=== PATIENT | female | born 1950 | race Two or more races ===

== ENCOUNTER 2018-05-18 18:36 | Emergency (ER) | payer MEDICARE ==
[~2018-05-18] VITALS: Ht 154.9 cm; Wt 52.6 kg
[2018-05-18 20:00] VITALS: BP 173/83
--- NOTE | 2018-05-18 20:17 | PHYS DOC ---
Adult General Chief Complaint Chief Complaint: WRIST PAIN HPI HPI Patient is a 68-year-old female who presents after falling at about 5:30 PM this evening. Patient fell onto left outstretched hand and complains of injury to her left wrist. Patient also complains of eye lateral knee pain and injury. Patient was able to bear weight but with pain. She denies any head injury or loss of consciousness. Patient rates pain a 7 out of 10. She states the pain is worsened with weightbearing and with palpation of her left wrist. Review of Systems Review of Systems Constitutional: Denies fever or chills [] Respiratory: Denies cough or shortness of breath [] Cardiovascular: No additional information not addressed in HPI [] Musculoskeletal: Complains of left wrist and bilateral knee joint pain [] Integument: Denies rash or skin lesions [] All other systems were reviewed and found to be within normal limits, except as documented in this note. Current Medications Current Medications Current Medications Medications (Trade) Dose Ordered Sig/Bola Start Time Stop Time Status Last Admin Dose Admin Acetaminophen/ Hydrocodone Bitart (Lortab 5/325) 1 tab 1X ONCE 05/18/18 20:45 05/18/18 20:46 DC 05/18/18 20:32 1 TAB Allergies Allergies Allergies Coded Allergies Type Severity Reaction Last Updated Verified No Known Drug Allergies 05/18/18 No Physical Exam Physical Exam Constitutional: Well developed, well nourished, no acute distress, non-toxic appearance. [] HENT: Normocephalic, atraumatic, bilateral external ears normal, oropharynx moist, no oral exudates, nose normal. [] Eyes: PERRLA, EOMI, conjunctiva normal, no discharge. [] Neck: Normal range of motion, no tenderness, supple, no stridor. [] Cardiovascular: Regular rate and rhythm[] Lungs & Thorax: Bilateral breath sounds clear to auscultation [] Abdomen: Bowel sounds normal, soft. [] Skin: Warm, dry. [] Extremities: Wrist demonstrates mild soft tissue swelling with moderate tenderness to palpation especially over the radial aspect of wrist. Range of motion is limited due to pain. Bilateral knees demonstrate tenderness to palpation over the patellae and slight abrasions are noted. [] Neurologic: Alert and oriented X 3, normal motor function, normal sensory function, no focal deficits noted. [] Current Patient Data Vital Signs Vital Signs Date Time Temp Pulse Resp B/P (MAP) Pulse Ox O2 Delivery O2 Flow Rate FiO2 05/18/18 20:00 98.6 77 16 173/83 (113) 97 Room Air 98.6 EKG EKG [] Radiology/Procedures Radiology/Procedures [] Impressions: X-ray of the left wrist demonstrates an impacted distal radius fracture with volar angulation. Course & Med Decision Making Course & Med Decision Making Pertinent Labs and Imaging studies reviewed. (See chart for details) Patient's case was discussed with or CVA who agrees that OCL splint is appropriate at this time. A sugar tong splint has been placed by the ER nurse. Good fit and alignment has been noted post splinting with neurovascular intact distal. Dragon Disclaimer Dragon Disclaimer This electronic medical record was generated, in whole or in part, using a voice recognition dictation system. Departure Departure Impression: Primary Impression: Closed fracture of distal end of left radius Disposition: 01 HOME, SELF-CARE Condition: STABLE Referrals: UNKNOWN PCP NAME (PCP) AGUSTINA CALABRESE MD Patient Instructions: Wrist Fracture Scripts Naproxen (NAPROXEN) 500 Mg Tablet 1 TAB PO BID PRN for PAIN, #20 TAB Prov: CASA MACKENZIE Jr. DO 05/18/18 Hydrocodone/Apap 5-325 (NORCO 5-325 TABLET) 1 Each Tablet 1 EACH PO PRN Q6HRS PRN for PAIN, #15 as needed for pain Prov: CASA MACKENZIE Jr. DO 05/18/18 Problem Qualifiers Primary Impression: Closed fracture of distal end of left radius Encounter type: initial encounter Fracture morphology: unspecified fracture morphology Qualified Codes: S52.502A - Unspecified fracture of the lower end of left radius, initial encounter for closed fracture CASA MACKENZIE Jr. DO May 18, 2018 20:17
[2018-05-18] MEDS: HYDROcodone/APAP 5/325MG 1 TAB TABLET PO ONE (20:32)
[2018-05-18] MEDS ORDERED: NAPR-514 PO (21:30)
[2018-05-18] MEDS ORDERED: HYDR-3164 PO (21:30)
--- NOTE | 2018-05-18 21:52 | RAD ---
Indication: Left wrist pain after fall TECHNIQUE: 3 views of the left wrist COMPARISON: None Findings/ impression: Mildly displaced complete fracture is seen through the distal radial metaphysis with mild ventral angulation. Wrist edema noted. The distal radioulnar joint is intact. Electronically signed by: Efra Gregory DO (05/18/2018 9:49 PM) [facility]
--- NOTE | 2018-05-18 21:54 | RAD ---
Indication: Fall with bilateral knee pain TECHNIQUE: Multiple views of the bilateral knees COMPARISON: None FINDINGS: Left knee: No acute fracture or dislocation. No suprapatellar effusion. Early evidence of osteoarthritis. Right knee: No acute fracture or dislocation. No suprapatellar effusion. IMPRESSION: As above. Electronically signed by: Efra Gregory DO (05/18/2018 9:50 PM) [facility]
== END 2018-05-18 23:05 | disposition home or self-care (01) ==
LOC: ER 18:36
DX: S52.502A Unspecified fracture of the lower end of left radius, initial encounter for closed fracture (principal); M25.562 Pain in left knee; M25.561 Pain in right knee; W18.30XA Fall on same level, unspecified, initial encounter; Y93.89 Activity, other specified; Y92.89 Other specified places as the place of occurrence of the external cause; Y99.8 Other external cause status
CPT/HCPCS: 29125; 73110; 73562; 99283